=== PATIENT | female | born 1995 | race Two or more races ===

== ENCOUNTER 2024-04-21 16:36 | Emergency (ER) | payer OTHER ==
[~2024-04-21] VITALS: Ht 167.6 cm; Wt 101.6 kg
[2024-04-21] MEDS ORDERED: ARNUITY ELLIPT50 MCG IH (16:45)
[2024-04-21] MEDS ORDERED: KETOROLAC TROMETHAMINE 60 MG VIAL IM ONE ×2 (20:07→20:15)
[2024-04-21] MEDS ORDERED: DICLOFENAC SODI50 MG PO (21:24)
== END 2024-04-21 21:29 ==
LOC: ER 16:37
DX: M75.31 Calcific tendinitis of right shoulder (principal); M25.511 Pain in right shoulder